=== PATIENT | female | born 1960 | race Caucasian/White ===

== ENCOUNTER 2023-08-20 07:41 | Outpatient (CLI) | payer OTHER, SELFPAY ==
--- NOTE | ~2023-08-20 | US_ITS ---
US thyroid INDICATION: Multinodular goiter TECHNIQUE: Real-time sonographic images of the thyroid gland were obtained. COMPARISON: No prior studies for comparison. FINDINGS: The right thyroid lobe measures 5 x 1.7 x 1.5 cm. The left thyroid lobe measures 4.2 x 1.4 x 1.2 cm. In the right thyroid gland there are multiple nodules, largest measuring 7 x 7 x 6 mm and is mostly cystic. There are multiple cysts of the left thyroid lobe as well. Largest measures 6 mm. I n the right lobe there is also an oval hypoechoic solid mass measuring 6 x 6 x 4 mm which is wider th an tall, smoothly marginated without echogenic foci, TR 4. Normal vascular flow is present. IMPRESSION: 1. Bilateral thyroid nodules, likely benign. Reviewed, dictated and finalized at location B.
== END 2023-08-20 07:42 | disposition home or self-care (01) ==
PROVIDERS: PCP Physician Assistant Medical; Visit Provider Internal Medicine
DX: E04.2 Nontoxic multinodular goiter (principal)
CPT/HCPCS: 76536

== ENCOUNTER 2024-03-08 07:20 | Outpatient (CLI) | payer OTHER, SELFPAY ==
--- NOTE | ~2024-03-08 | US_ITS ---
EXAMINATION: US thyroid DATE: 03/08/2024 07:43 INDICATION: Multinodular goiter. TECHNIQUE: Multiple ultrasound images of the thyroid were obtained. COMPARISON: Ultrasound 08/20/2023 FINDINGS: The right thyroid lobe measures 5.1 x 2.0 x 1.4 cm. The left thyroid lobe measures 4.6 x 1.4 x 1.6 c m. In the right thyroid lobe, there is a 9 mm mixed cystic and solid, hypoechoic, wider than tall no dule with ill-defined margin without echogenic foci (TI-RADS TR3). In the left thyroid lobe, there is a 6 mm solid, hypoechoic, wider than tall nodule with smooth margin without echogenic foci (TR4). Th ere are multiple smaller thyroid nodules. IMPRESSION: 1. Small thyroid nodules, likely not clinically significant. No follow-up is needed. Reviewed, dictated and finalized at location A. [facility] [employer] ATTENDANT IMPRESSION: 1. Small thyroid nodules, likely not clinically significant. No follow-up is ne eded.
== END 2024-03-08 07:21 | disposition home or self-care (01) ==
LOC: ANHIMG 07:21
PROVIDERS: PCP Physician Assistant Medical; Visit Provider Internal Medicine
DX: E04.2 Nontoxic multinodular goiter (principal)
CPT/HCPCS: 76536